=== PATIENT | male | born 1955 | race Caucasian/White ===

== ENCOUNTER 2016-11-03 18:52 | Emergency (ER) | payer OTHER ==
[2016-11-03] MEDS ORDERED: Ibuprofen 200 MG TAB ONE (20:56)
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
== END 2016-11-03 22:20 ==
LOC: NAV ERS 18:52
DX: S06.0X1A Concussion with loss of consciousness of 30 minutes or less, initial encounter (principal); S00.83XA Contusion of other part of head, initial encounter; S10.93XA Contusion of unspecified part of neck, initial encounter; I10 Essential (primary) hypertension; G43.909 Migraine, unspecified, not intractable, without status migrainosus; F31.9 Bipolar disorder, unspecified; F20.9 Schizophrenia, unspecified; E78.5 Hyperlipidemia, unspecified; Z79.82 Long term (current) use of aspirin; Z79.899 Other long term (current) drug therapy; Y04.8XXA Assault by other bodily force, initial encounter; Y92.142 Bathroom in prison as the place of occurrence of the external cause
CPT/HCPCS: 70450; 72100; 72125